=== PATIENT | female | born 1955 | race Caucasian/White ===

== ENCOUNTER → 2017-07-14 | Outpatient (CLI) | payer OTHER, MEDICAID ==
[~2017-07-14] MED LIST: ADVAIR HFA 230M12 GM INH; ALBUTEROL2.5 MG/3 M INH; ALPRAZOLAM ER1 MG PO; AMLODIPINE BESY10 MG PO; ASPIR 8181 MG PO; CLONAZEPAM 1 MG1 M1 PO; COPD MED; CYPROHEPTADINE 44 MG PO; DURAGESIC25 MCG/HR TRANSDERM; EFFEXOR 5050 MG/1 T1 PO; FENTANYL PA25 MCG/HR TRANSDERM; FENTANYL PA50 MCG/HR TRANSDERM; HYDROCODON-ACE1 EAC8 PO; LEVAQUIN 500 M500 M2 PO; LEVAQUIN PO; LISINOPRIL5 MG PO; MINIPRESS2 MG PO; NORCO 7.5-3251 EACH PO; OMEPRAZOLE10 MG PO; PREDNISONE 10 M10 MG PO; PROTONIX40 M4 PO; QUETIAPINE FUM400 M1 PO; REMERON15 MG PO; SEROQUEL 100 M100 M1 PO; SEROQUEL 50 MG50 MG PO; SEROQUEL XR50 MG PO; SINGULAIR 10 MG10 M1 PO; SPRIVA PO; STIOLTO RESPIMAT4 GM INH; SYMBICORT160 MCG/4. INH; TRAZODONE HCL100 MG PO; TRILEPTAL 300300 MG PO; TRILEPTAL300 MG/5 M PO; VENLAFAXIN75 MG/1 T2 PO; VENTOLIN HFA 1818 GM INH; ZOCOR20 MG PO; ZOFRAN ODT4 MG SUBLING
--- NOTE | 2017-07-24 01:55 | CON ---
[address] [address] CONSULTATION Name: JENNIFER ELIZABETH Room: [facility].#: [id number] Admission: 07/14/17 Attend Phys: Dirk Philip MD Discharge: Date of : 55 Report #: [id number] THIS REPORT FOR: //name// CC: Dirk Villanueva MD DATE OF CONSULTATION: 07/14/2017 RADIATION ONCOLOGY CONSULT NOTE REFERRING PHYSICIANS: Include Maggie Cleaning MD; Jessi Bhardwaj MD and Dirk Villanueva MD. [facility] phone is [phone]. PRIMARY SITE AND HISTOPATHOLOGY: The patient has several new brain metastases. HISTORY OF PRESENT ILLNESS: The patient had multiple lung nodules that were seen, and she underwent a biopsy of one of the lymph nodes on the left at station 11 and the fine needle aspirate revealed adenocarcinoma and it was favoring a lung origin and that was performed on 08/18/2016. She has a history of cigarette smoking. She still smokes about 3 cigarettes a day at this point. She smoked cigarettes since about 1970. 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 She received radiation therapy for that and that was completed on 01/01/2016. Later, she developed bilateral nodules in her lungs and she received stereotactic radiation treatments from Dr. Whitmore and she received stereotactic radiation surgery from 10/11/2016 through 11/04/2016. She received a total of 6000 cGy in 10 fractions. A PET/CT scan on 02/03/2017 revealed development of hypermetabolic nodule densities in her upper abdomen and retroperitoneum consistent with metastatic disease. She was referred to her medical oncologist, Dr. Bhardwaj. She was receiving chemotherapy consisting of carboplatin and Taxol. She went on to develop a brain metastasis and I treated her with stereotactic radiation surgery on 06/09/2017. She received 2400 cGy in a single fraction at that time. She went on to receive further chemotherapy and the chemotherapy in 2018 consisted of carboplatin and Taxol. She indicated that she has been now on break after she saw Dr. Bhardwaj on 06/14/2017. She had a followup head MRI performed on 07/11/2017 and it showed a good response of the treated lesion in the cerebellum with that decreasing in size, went from 0.6 cm to 0.4 cm, but she developed 2 small nodules, one in the right parietal cortical area and one in the right frontal cortical area. She denied having any headaches, so these seem to be asymptomatic. She [place] [address] CONSULTATION Name: JENNIFER ELIZABETH Room: [facility]#: [id number] Admission: 07/14/17 Attend Phys: Dirk Philip MD Discharge: Date of : 55 Report #: [id number] on 06/13/2017 and that revealed a decrease in size of the left paratracheal lymphadenopathy and no change in size of the soft tissue density in the abdomen. So, she presents to discuss her MRI findings. PAST MEDICAL AND PAST SURGICAL HISTORY: As mentioned, she had definitive radiation therapy for true vocal cord cancer. She had a cataract repair in the past. She has a history of emphysema. She has a history of depression. She also had cervical cancer and received radiation therapy at [facility] for that. MEDICATIONS: At this time includes albuterol inhaler, amlodipine, 81 mg aspirin, Symbicort, clonazepam, Periactin, Colace as needed, guaifenesin as needed, 5 mg hydrocodone, 325 mg acetaminophen, for arthritic pains in her knees and hips. She takes 25 mcg of levothyroxine per day. She also is taking lisinopril, meloxicam, Remeron, Zofran as needed. She has been on a course of potassium supplements because she was slightly hypokalemic, and she is also on Zocor and Effexor XR. ALLERGIES: TRAMADOL. OBSTETRICS AND GYNECOLOGY: Menarche around age 11. Last menstrual period was in 1981. She is 3, para 3. FAMILY HISTORY: Mother had cervical cancer. SOCIAL HISTORY: The patient is on disability. Ethanol: She does not drink alcohol-containing drinks. Cigarettes: She is now cigarette smoking about three cigarettes a day, has smoked since about 1970. REVIEW OF SYSTEMS: GENERAL: She has had a little bit of weight loss since she cleared her last chemotherapy. SKIN: She denied having any significant bruising. LYMPH NODES: She denied having any enlarged lymph nodes. ENDOCRINE: She denied having any cold intolerance. HEMATOLOGY/IMMUNOLOGY: She denied having any recent bleeding. MUSCULOSKELETAL: She does have painful knee and hip joints. HEAD AND NECK: She had no complaints of any recent headaches. RESPIRATORY: She does get short of breath on moderate exertion. CARDIOVASCULAR: She denied having any palpitations. GASTROINTESTINAL: She denied having any nausea or vomiting. NEUROLOGIC: She denied having any focal weakness. PHYSICAL EXAMINATION: VITAL SIGNS: The patient weighed 90.4 pounds on 07/14/2017. The patient was 102.2 pounds on 02/06/2017 and on 07/14/2017, blood pressure 90/60, pulse 100, respirations 20, oxygen saturation 97%. [place] [address] CONSULTATION Name: JENNIFER ELIZABETH Room: [facility]#: [id number] Admission: 07/14/17 Attend Phys: Dirk Philip MD Discharge: Date of : 55 Report #: [id number] NODES: She had no palpable cervical or supraclavicular lymphadenopathy. GENERAL PSYCHIATRIC: She is alert, oriented, in no acute distress. EYES: Pupils were equal, round, reactive to light and accommodation. Extraocular movements are intact. HEAD, EARS, NOSE AND THROAT: Mouth had no visible lesions or palpable lesions. HEART: Had a regular rate and rhythm without murmur. LUNGS: were clear to auscultation. ABDOMEN: Nontender. Spleen was not palpable. Liver was at the costal margin. EXTREMITIES: Had no clubbing, cyanosis or edema. NEUROLOGIC: Cranial nerves II to XII were intact. Sensation was intact. She had 4/5 strength in her extremities. LABORATORY DATA: From 07/11/2017, hemoglobin 11.9, platelets 285,000, white blood cell count 6.1, absolute neutrophil count was 4.3. Sodium 136, potassium was 3.3, which was less than normal. She was given a prescription for potassium supplements at that time and encouraged to increase her intake of potassium-rich foods. BUN was 11, creatinine 0.47. ASSESSMENT AND PLAN: The patient has new areas of brain metastasis and she has good response in the treated brain metastasis. So, the patient was offered stereotactic radiation surgery for these 2 new areas of brain metastasis. The risks, benefits and logistics of stereotactic radiation surgery were explained to the patient in detail. The patient gave her witnessed informed consent to proceed with stereotactic radiation surgery to those areas. Right now, she is on break from chemotherapy. The efficacy of stereotactic radiation surgery for brain metastasis can be found in the study entitled stereotactic radiosurgery plus whole brain radiation therapy versus stereotactic radiation surgery alone for brain metastasis. It is an article with one of the authors being Dr. Lundberg. This was published in the Journal of the [employer] in 2006. There was no difference in survival whether they received whole brain radiation therapy with stereotactic radiation surgery or not when they had 1-4 brain metastasis and the 1-year survival rate was about 28.4% for stereotactic radiation surgery alone. The 12 months of brain tumor recurrence rate was about 76.4% with the stereotactic radiation surgery alone. Thank you very much for this consult. <ELECTRONICALLY SIGNED> By: Dirk Philip MD 07/24/17 [id number] Philip MD /nt
== END ==
LOC: M.RTH 01:18
DX: C79.31 Secondary malignant neoplasm of brain (principal)